=== PATIENT | female | born 1985 | race Caucasian/White ===

== ENCOUNTER 2016-12-11 11:14 | Emergency (ER) | payer BC, OTHER ==
[~2016-12-11] VITALS: Ht 165.1 cm; Wt 90.7 kg
[~2016-12-11 11:14] MED LIST: AMOXICILLIN875 MG PO; PRENATAL
[2016-12-11 11:18] VITALS: BP 110/75
[2016-12-11] MEDS ORDERED: NAPROSYN500 MG PO (11:33)
[2016-12-11] MEDS ORDERED: ULTRAM 50MG TAB50 MG PO (11:53)
== END 2016-12-11 13:14 | disposition home or self-care (01) ==
LOC: ER 11:14
DX: K08.89 Other specified disorders of teeth and supporting structures (principal)

== ENCOUNTER → 2019-01-12 | Outpatient (CLI) | payer BC ==
[~2019-01-12] MED LIST changes: +NAPROSYN500 MG PO; +ULTRAM 50MG TAB50 MG PO
--- NOTE | 2019-01-12 16:46 | EKG ---
[address] [address] ELECTROCARDIOGRAM REPORT Name: RUTH SILVER Room #: REG [facility]#: [id number] ������������������ Admission: 01/12/19 ������������������ Attend Phys: VIVIENNE - Family physician Discharge: ������������������ Date of : 89 Report #: [id number] ����������������������������������������������������������������� [id number] THIS REPORT FOR: //name// [facility] Test Date: 2019-01-12 Test Time: 12:09:59 Pat Name: RUTH SILVER Department: Room: Gender: F Behaviorist: Lucie PRITCHETT : 1985 Requested By: VIVIENNE unknown Order Number: [id number] MD: Steve Rodriguez Measurements Intervals [place] Rate: 62 P: 45 MA: 141 QRS: 66 QRSD: 96 T: 57 QT: 385 QTc: 391 Interpretive Statements Sinus rhythm No previous ECG available for comparison Electronically Signed On 01-12-2019 16:46:36 [employer] 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
== END ==
LOC: RAD 11:11
DX: Z01.811 Encounter for preprocedural respiratory examination (principal); R05 Cough

== ENCOUNTER 2019-09-27 23:59 | Emergency (ER) | payer BC ==
[~2019-09-27] VITALS: Ht 165.1 cm; Wt 81.7 kg
[2019-09-28 01:01] LABS: URINE BILIRUBIN NEGATIVE (Negative); URINE BLOOD NEGATIVE (Negative); URINE CLARITY SL CLOUDY; URINE COLOR YELLOW; URINE GLUCOSE-RANDOM* NEGATIVE (Negative); URINE KETONES NEGATIVE (Negative); URINE NITRITE-REFLEX NEGATIVE (Negative); URINE PROTEIN (DIPSTICK) NEGATIVE (Negative); URINE UROBILINOGEN 0.2 E.U./dl (0.2-1.0)
[2019-09-28 01:04] LABS: URINE LEUKOCYTES-REFLEX 1+ (Negative)
[2019-09-28 01:27] LABS: ABSOLUTE NEUTROPHILS 6.7 thou/uL (1.4-8.2); BASOPHILS 0.6 % (0.0-2.0); EOSINOPHILS 1.2 % (0.0-3.0); HEMATOCRIT 36.3 % (37.0-47.0); HEMOGLOBIN 11.9 gm/dL (12.0-15.0); LYMPHOCYTES 22.6 % (24.0-44.0); MCH 29.2 pg (26.0-34.0); MCHC 32.8 g/dL (28.0-37.0); MCV 89.1 fL (80.0-100.0); MONOCYTES 8.1 % (1.0-8.0); PLATELET COUNT 237 thou/uL (150-400); POLYS 67.5 % (36.0-66.0); RBC 4.07 mil/uL (4.20-5.00); RDW 13.2 % (10.5-14.5); WBC 9.9 thou/uL (4.0-11.0)
[2019-09-28 01:30] LABS: ANION GAP 8 mmol/L (7-16); BUN 10 mg/dL (7-18); CHLORIDE 103 mmol/L (98-107); CO2 28 mmol/L (21-32); CREATININE 0.9 mg/dL (0.6-1.0); GLUCOSE 86 mg/dL (74-106); POTASSIUM 3.8 mmol/L (3.5-5.1); SODIUM 139 mmol/L (136-145)
[2019-09-28 01:36] LABS: SQUAMOUS 4-10 Moderate /LPF (0-3)
[2019-09-28 01:36] LABS: DIRECT BILIRUBIN < 0.1 mg/dL (<0.1-0.3); LIPASE 294 U/L (73-393); SGOT 16 U/L (15-37); SGPT 19 U/L (30-65); TOTAL BILIRUBIN 0.1 mg/dL (<0.1-1.0); TOTAL PROTEIN 6.5 g/dL (6.4-8.2)
[2019-09-28 01:37] LABS: BACTERIA-REFLEX 1-9 Few /HPF (None Seen); CASTS None Seen /LPF (None Seen); CRYSTALS None Seen /LPF (None Seen); MUCUS 0-3 Light strn/LPF (None Seen); URINE RBC 0-2 Rare /HPF (0-2); URINE WBC-REFLEX 6-15 Few /HPF (0-5)
[2019-09-28 02:21] VITALS: BP 111/67
[2019-09-28] MEDS ORDERED: KEFLEX500 M2 PO (02:40)
== END 2019-09-28 03:00 | disposition home or self-care (01) ==
LOC: ER 23:59
PROVIDERS: Emergency Medicine
DX: N39.0 Urinary tract infection, site not specified (principal); R10.30 Lower abdominal pain, unspecified

== ENCOUNTER 2019-10-13 20:30 | Emergency (ER) | payer BC ==
[~2019-10-13] VITALS: Ht 165.1 cm; Wt 81.7 kg
[~2019-10-13 20:30] MED LIST changes: +KEFLEX500 M2 PO
[2019-10-13] MEDS ORDERED: FLAGYL500 M1 PO (21:25)
[2019-10-13 21:35] VITALS: BP 125/52
== END 2019-10-13 21:35 | disposition home or self-care (01) ==
LOC: ER 20:30
DX: N76.0 Acute vaginitis (principal)

== ENCOUNTER 2020-07-08 22:20 | Emergency (ER) | payer OTHER ==
[~2020-07-08] VITALS: Ht 165.1 cm; Wt 86.2 kg
[~2020-07-08 22:20] MED LIST changes: +FLAGYL500 M1 PO
[2020-07-08 23:21] LABS: URINE BILIRUBIN NEGATIVE (Negative); URINE BLOOD NEGATIVE (Negative); URINE CLARITY SL CLOUDY; URINE COLOR YELLOW; URINE GLUCOSE-RANDOM* NEGATIVE (Negative); URINE KETONES TRACE (Negative); URINE LEUKOCYTES-REFLEX TRACE (Negative); URINE PROTEIN (DIPSTICK) TRACE (Negative); URINE UROBILINOGEN 0.2 E.U./dl (0.2-1.0)
[2020-07-08 23:22] LABS: URINE NITRITE-REFLEX POSITIVE (Negative)
[2020-07-08 23:32] LABS: CASTS None Seen /LPF (None Seen); MUCUS 0-3 Light strn/LPF (None Seen); SQUAMOUS >10 Many /LPF (0-3)
[2020-07-08 23:33] LABS: BACTERIA-REFLEX >30 Many /HPF (None Seen); CRYSTALS None Seen /LPF (None Seen); URINE RBC 3-10 Few /HPF (0-2); URINE WBC-REFLEX 0-5 Rare /HPF (0-5)
[2020-07-08] MEDS ORDERED: FLAGYL500 M1 PO (23:51)
[2020-07-09 00:11] VITALS: BP 129/86
== END 2020-07-09 00:12 | disposition home or self-care (01) ==
LOC: ER 22:20
PROVIDERS: Emergency Medicine
DX: N89.8 Other specified noninflammatory disorders of vagina (principal); R10.2 Pelvic and perineal pain

== ENCOUNTER 2020-10-13 18:16 | Emergency (ER) | payer OTHER ==
[~2020-10-13] VITALS: Ht 165.1 cm; Wt 86.2 kg
[2020-10-13 19:35] LABS: URINE BILIRUBIN NEGATIVE (Negative); URINE BLOOD TRACE (Negative); URINE CLARITY CLEAR; URINE COLOR YELLOW; URINE GLUCOSE-RANDOM* NEGATIVE (Negative); URINE KETONES NEGATIVE (Negative); URINE LEUKOCYTES-REFLEX NEGATIVE (Negative); URINE NITRITE-REFLEX NEGATIVE (Negative); URINE PROTEIN (DIPSTICK) NEGATIVE (Negative); URINE UROBILINOGEN 0.2 E.U./dl (0.2-1.0)
[2020-10-13] MEDS ORDERED: FLAGYL500 M1 PO (20:00)
[2020-10-13] MEDS ORDERED: NAPROSYN500 MG PO (20:00)
[2020-10-13 20:19] VITALS: BP 123/68
== END 2020-10-13 20:20 | disposition home or self-care (01) ==
LOC: ER 18:16
PROVIDERS: Physician Assistant
DX: N76.0 Acute vaginitis (principal)

== ENCOUNTER 2021-03-14 17:25 | Emergency (ER) | payer OTHER ==
[~2021-03-14] VITALS: Ht 165.1 cm; Wt 86.2 kg
[2021-03-14 17:51] LABS: URINE BILIRUBIN NEGATIVE (Negative); URINE BLOOD NEGATIVE (Negative); URINE CLARITY CLEAR; URINE COLOR YELLOW; URINE GLUCOSE-RANDOM* NEGATIVE (Negative); URINE KETONES NEGATIVE (Negative); URINE LEUKOCYTES-REFLEX NEGATIVE (Negative); URINE NITRITE-REFLEX NEGATIVE (Negative); URINE PROTEIN (DIPSTICK) NEGATIVE (Negative); URINE UROBILINOGEN 0.2 E.U./dl (0.2-1.0)
[2021-03-14 18:54] VITALS: BP 113/64
== END 2021-03-14 19:52 | disposition home or self-care (01) ==
LOC: ER 17:25
PROVIDERS: Nurse Practitioner
DX: N93.8 Other specified abnormal uterine and vaginal bleeding (principal); Z79.899 Other long term (current) drug therapy